=== PATIENT | male | born 1975 | race African-American/Black ===

== ENCOUNTER 2019-10-23 14:35 | Inpatient (IN) | payer MEDICAID, OTHER ==
[~2019-10-23] VITALS: Ht 167.6 cm; Wt 64.4 kg
[2019-10-23] MEDS ORDERED: LORazepam 2MG/ML-1ML VIAL IV ONE (14:45)
[2019-10-23 15:02] LABS: Basophils # (auto) 0.1 10 ^3/uL (0-0.2); Eosinophils # (auto) 0.1 10 ^3/uL (0-0.8); Hemoglobin 13.9 g/dL (13.5-17.5); Lymphocytes # (auto) 1.6 10 ^3/uL (0.4-5.4); Mean Corpuscular Hgb Conc. 30.9 g/dL (32.0-36.0)
[2019-10-23 15:21] LABS: Albumin 3.7 g/dL (3.4-5.0); Anion Gap 7 (5-15); Blood Urea Nitrogen 8 mg/dL (7-18); Calcium 9.4 mg/dL (8.5-10.1); Carbon Dioxide 28 mmol/L (21-32); Chloride 99 mmol/L (98-107); Glucose 94 mg/dL (74-106); Magnesium 1.8 mg/dL (1.6-2.6); Potassium 3.3 mmol/L (3.5-5.1); Sodium 134 mmol/L (136-145)
[2019-10-23 15:26] LABS: Basophils % (auto) 0.7 % (0.0-2.0); Eosinophils % (auto) 1.3 % (0.0-7.0); Monocytes # (auto) 0.6 10 ^3/uL (0-1.3); Monocytes % (auto) 5.6 % (0.0-12.0); Neutrophils # (auto) 7.6 10 ^3/uL (1.6-8.6); Neutrophils % (auto) 76.4 % (37.0-80.0); Red Blood Cells 6.22 10^6/uL (4.5-5.90); White Blood Cell 9.9 10^3/uL (4.4-10.8)
[2019-10-23 15:27] LABS: Alanine Aminotransferase 17 U/L (16-61); Alkaline Phosphatase 106 U/L (45-117); Aspartate Aminotransferase 10 U/L (15-37); BUN/Creatinine Ratio 5.9; Bilirubin, Total 0.4 mg/dL (0.2-1.0); GFR African American 74 mL/min; GFR Non-African American 61 mL/min; Hematocrit 44.8 % (41.0-53.0); Mean Corpuscular Hemoglobin 22.3 pg (28.0-32.0); Mean Corpuscular Volume 72.1 fL (80.0-100.0); Platelet Count (auto) 301 10^3/uL (140-450); Red Cell Distribution Width 14.5 % (11.8-14.3); Total Protein 7.7 g/dL (6.4-8.2)
[2019-10-23 17:35] LABS: Urine Bacteria NONE SEEN /hpf (None Seen); Urine Blood Negative /uL (Negative); Urine Mucus FEW (None Seen); Urine Specific Gravity 1.009 (1.001-1.035); Urine WBC <1 /hpf (0 - 3)
[2019-10-23 17:38] LABS: Alcohol, Urine < 3.0 mg/dL (0-10); Amphetamine Screen, Urine NEGATIVE (NEGATIVE); Barbiturate Scree,Urine NEGATIVE (NEGATIVE); Benzodiazephine Screen, Urine NEGATIVE (NEGATIVE); Cannabinoid Screen, Urine POSITIVE (NEGATIVE); Cocaine Screen, Urine NEGATIVE (NEGATIVE); Opiate Scree,Urine NEGATIVE (NEGATIVE); Phencyclidine Screen, Urine NEGATIVE (NEGATIVE)
[2019-10-23] MEDS ORDERED: ONDANSETRON HCL 4 MG/2 ML VIAL IV PRN (21:45)
[2019-10-23] MEDS ORDERED: ACETAMINOPHEN 325 MG TAB PO PRN (21:45)
[2019-10-23] MEDS ORDERED: NITROGLYCERIN 0.4 MG SL TAB SL PRN (21:45)
[2019-10-23] MEDS ORDERED: ZOLPIDEM TARTRATE 5 MG TAB PO PRN (21:45)
[2019-10-23] MEDS: SODIUM CHLORIDE 0.9% 1,000 ML IV SCH (21:45)
[2019-10-23] MEDS ORDERED: METOPROLOL TARTRATE 1MG/1ML-5ML VIAL IV PRN (21:45)
[2019-10-23] MEDS ORDERED: CARVEDILOL 3.125 MG TAB PO SCH (22:00)
[2019-10-23] MEDS: CARVEDILOL 3.125 MG TAB PO SCH (22:21)
[2019-10-23] MEDS: ATORVASTATIN 20 MG TAB PO SCH (22:21)
[2019-10-23 23:00] VITALS: BP 133/92
--- NOTE | 2019-10-23 23:15 | NUR ---
MS admit from ER BASILLIDYA admitted to tele/MS after SBAR received. Patient oriented to GUIDO STACY RN, room 238. Patient weighed by bedscale and encouraged to call if they need something. Pt is on room air with even and unlabored respirations. Bed locked, in lowest position, call light within reach, side rails up x2. All questions and concerns addressed, patient verbalized understanding. Will continue to monitor Q1hr and PRN.
[2019-10-24] VITALS (7 sets, daily range): BP systolic 114–164; BP diastolic 64–103
[2019-10-24] MEDS: MORPHINE SULF INJ 2 MG/ML SYRINGE 1ML IV PRN (06:50)
--- NOTE | 2019-10-24 06:50 | NUR ---
Pt reporting chest pain Chest pain 10/11. EKG performed. Showed NSR. Morphine given as protocol. Vitals: BP 147/100, P 64, O2 100%, RR 20. Will endorse to day shift RN for further monitoring.
--- NOTE | 2019-10-24 07:30 | NUR ---
Opening Shift Note Assumed care of patient, awake and alert. No S/S of distress/SOB or pain. Instructed on POC and to call for assist PRN, will continue to monitor for changes Q1hr and PRN.
--- NOTE | 2019-10-24 07:42 | NUR ---
RN TO REORDER COVID [facility] IN-HOUSE PER [facility] IS CURRENTLY UNABLE TO RUN IN-HOUSE TESTING. RN IS TO PERFORM SONIC TEST
[2019-10-24] MEDS: CLOPIDOGREL BISULFATE 75 MG TAB PO SCH (08:49)
[2019-10-24] MEDS: CARVEDILOL 3.125 MG TAB PO SCH ×2 (08:49→22:25)
[2019-10-24] MEDS: DOCUSATE SOD 100 MG CAP PO SCH (08:50)
[2019-10-24] MEDS: ASPirin 81 mg TAB PO SCH (08:50)
[2019-10-24] MEDS: SODIUM CHLORIDE 0.9% 1,000 ML IV SCH (08:50)
[2019-10-24] MEDS: LISINOPRIL 10 MG TAB PO SCH (08:50)
[2019-10-24] MEDS: LORazepam 0.5 MG TAB PO PRN (09:15)
--- NOTE | 2019-10-24 12:01 | NUR ---
SONIC TEST OBTAINED AND WALKED TO LAB BY DIRECTOR [employer] RHONDA
--- NOTE | 2019-10-24 14:15 | NUR ---
Est energy needs 5271-7989 kcal (25-30 kcal/kg BW 61.8kg) Est protein needs 49-62g (0.8-1g/kg BW 61.8kg) Will reassess prn. Addendum: 10/24/19 at [address] Amended: Links added.
[2019-10-24 15:58] LABS: BUN/Creatinine Ratio 8.2; Calcium 8.4 mg/dL (8.5-10.1); Potassium 3.7 mmol/L (3.5-5.1)
[2019-10-24] MEDS: ATORVASTATIN 20 MG TAB PO SCH (22:24)
[2019-10-25] MEDS: SODIUM CHLORIDE 0.9% 1,000 ML IV SCH ×2 (00:13→13:33)
[2019-10-25 05:13] VITALS: BP 136/74
[2019-10-25] MEDS: CLOPIDOGREL BISULFATE 75 MG TAB PO SCH (08:39)
[2019-10-25] MEDS: LISINOPRIL 10 MG TAB PO SCH (08:39)
[2019-10-25] MEDS: DOCUSATE SOD 100 MG CAP PO SCH (08:39)
[2019-10-25] MEDS: ASPirin 81 mg TAB PO SCH (08:39)
[2019-10-25] MEDS: CARVEDILOL 3.125 MG TAB PO SCH ×2 (08:40→21:33)
[2019-10-25 09:00] VITALS: BP 140/86
--- NOTE | 2019-10-25 09:40 | NUR ---
IV insertion IV access obtained, via clean sterile technique by inserting 20 gauge catheter at LEFT UPPER ARM after 1 attempt(s). IV secured properly. No trauma to site. Patient tolerated well.
--- NOTE | 2019-10-25 09:40 | NUR ---
IV removal IV DC'd with clean sterile technique, catheter fully intact. Pressure dressing applied to site. Patient tolerated well. NOTE:
[2019-10-25] MEDS: MORPHINE SULF INJ 2 MG/ML SYRINGE 1ML IV PRN (09:49)
[2019-10-25] MEDS ORDERED: ASPirin 81 mg TAB PO SCH (10:00)
[2019-10-25] MEDS ORDERED: PANTOPRAZOLE 40 MG TAB PO ONE (10:15)
[2019-10-25 13:00] VITALS: BP 113/80
[2019-10-25 17:00] VITALS: BP 128/80
--- NOTE | 2019-10-25 20:00 | NUR ---
Opening Shift Note Assumed care of patient, awake and alert x4. Patient denies pain or shortness of breath at this time. No sign/symptoms of distress noted or verbalized at this time. Instructed on plan of care and encouraged patient to call for assistance as needed, patient verbalized understanding. Bed is locked in lowest position, side rails x 2 are up, and call light is within reach.
[2019-10-25] MEDS: ATORVASTATIN 20 MG TAB PO SCH (21:34)
[2019-10-25] MEDS: LORazepam 0.5 MG TAB PO PRN (21:45)
[2019-10-25 22:00] VITALS: BP 117/81
[2019-10-26] MEDS: SODIUM CHLORIDE 0.9% 1,000 ML IV SCH ×2 (02:53→16:13)
[2019-10-26 05:00] VITALS: BP 117/74
--- NOTE | 2019-10-26 07:01 | NUR ---
Respiratory note: POX SPO2 98% ON RA. PT IS COMFORTABLY SLEEPING.
--- NOTE | 2019-10-26 07:08 | NUR ---
OPENING SHIFT NOTE ASSUMED CARE OF PATIENT FROM OXYGEN THERAPY TECHNICIAN RN RIKY. PATIENT IS AWAKE, ALERT, AND ORIENTED X4. PATIENT HAS NO S/S OF DISTRESS/SOB OR PAIN. INSTRUCTED PATIENT ON POC, PATIENT VERBALIZED UNDERSTANDING. BED IS IN LOWEST POSITION WITH SIDE RAILS RAISED X2, BED WHEELS LOCKED, AND CALL LIGHT IS WITHIN REACH. WILL CONTINUE TO MONITOR.
[2019-10-26 08:00] VITALS: BP 104/57
[2019-10-26] MEDS: LORazepam 0.5 MG TAB PO PRN ×2 (08:37→13:08)
[2019-10-26 09:00] VITALS: BP 104/57
--- NOTE | 2019-10-26 09:41 | NUR ---
REPORT GIVEN TO HALINA ALARCON. PATIENT TRANSFERRED TO 222A VIA WHEELCHAIR. PATIENT HAS NO S/S OF DISTRESS/SOB OR PAIN AT THIS TIME.
[2019-10-26] MEDS: ASPirin 81 mg TAB PO SCH (10:22)
[2019-10-26] MEDS: DOCUSATE SOD 100 MG CAP PO SCH (10:23)
[2019-10-26] MEDS: CARVEDILOL 3.125 MG TAB PO SCH ×2 (10:25→22:00)
[2019-10-26] MEDS: PANTOPRAZOLE 40 MG TAB PO SCH (10:26)
[2019-10-26] MEDS: CLOPIDOGREL BISULFATE 75 MG TAB PO SCH (10:26)
[2019-10-26] MEDS: LISINOPRIL 10 MG TAB PO SCH (10:27)
[2019-10-26 11:48] LABS: Mean Corpuscular Volume 71.7 fL (80.0-100.0); Monocytes # (auto) 0.5 10 ^3/uL (0-1.3); Platelet Count (auto) 272 10^3/uL (140-450)
[2019-10-26 11:50] LABS: Basophils # (auto) 0.1 10 ^3/uL (0-0.2); Basophils % (auto) 0.9 % (0.0-2.0); Eosinophils # (auto) 0.2 10 ^3/uL (0-0.8); Eosinophils % (auto) 3.5 % (0.0-7.0); Hematocrit 41.7 % (41.0-53.0); Lymphocytes # (auto) 1.6 10 ^3/uL (0.4-5.4); Mean Corpuscular Hemoglobin 22.5 pg (28.0-32.0); Mean Corpuscular Hgb Conc. 31.3 g/dL (32.0-36.0); Neutrophils # (auto) 4.6 10 ^3/uL (1.6-8.6); Neutrophils % (auto) 65.6 % (37.0-80.0); Red Blood Cells 5.81 10^6/uL (4.5-5.90); Red Cell Distribution Width 14.4 % (11.8-14.3)
[2019-10-26 12:09] LABS: Albumin 3.3 g/dL (3.4-5.0); Calcium 8.8 mg/dL (8.5-10.1)
[2019-10-26 12:13] LABS: BUN/Creatinine Ratio 12.5; Bilirubin, Total 0.3 mg/dL (0.2-1.0); Total Protein 7.1 g/dL (6.4-8.2)
[2019-10-26 12:57] VITALS: BP 112/66
--- NOTE | 2019-10-26 13:54 | NUR ---
MD ROUNDS MD ROUNDS WITH DR. WALLS. NO NEW ORDERS AT THIS TIME. WILL CONTINUE TO MONITOR.
--- NOTE | 2019-10-26 15:03 | NUR ---
PATIENT TAKEN DOWN FOR STRESS TEST
--- NOTE | 2019-10-26 15:30 | NUR ---
PATIENT RETURNED FROM STRESS TEST. NO SIGNS OF DISTRESS AT THIS TIME. RESPIRATIONS EVEN AND UNLABORED.
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
[2019-10-26 16:57] VITALS: BP 140/89
--- NOTE | 2019-10-26 17:27 | NUR ---
IV insertion IV access obtained, via clean sterile technique by inserting 20 gauge catheter at RA after 1 attempt. IV secured properly. No trauma to site. Patient tolerated well.
--- NOTE | 2019-10-26 19:24 | NUR ---
CLOSING NOTE ENDORSED CARE TO DAY SHIFT RN
--- NOTE | 2019-10-26 19:34 | NUR ---
Opening Shift Note Received report and assumed care of patient. Patient is awake and alert. No signs or symptoms of distress noted. Instructed patient on plan of care and to call for assistance as needed. Will continue to monitor.
[2019-10-26] MEDS: ATORVASTATIN 20 MG TAB PO SCH (21:58)
[2019-10-26 22:00] VITALS: BP 136/75
--- NOTE | 2019-10-26 22:00 | NUR ---
Medication Held Patient's blood pressure 132/71, Heart rate 59. Held Coreg 6.25mg to prevent further decrease in heart rate. Will continue to monitor and will endorse to day shift nurse.
[2019-10-27] MEDS: LORazepam 0.5 MG TAB PO PRN (00:39)
[2019-10-27 05:00] VITALS: BP 128/81
[2019-10-27] MEDS: SODIUM CHLORIDE 0.9% 1,000 ML IV SCH (06:32)
--- NOTE | 2019-10-27 08:00 | NUR ---
Morning note Patient resting in bed with even and unlabored respirations, no distress noted. Instructed patient on POC, fall precautions and to call for assistance as needed. Patient verbalized understanding. Fall precautions in place with call light within reach.
[2019-10-27] MEDS ORDERED: ADENOSINE 52 MG in GIVE UN-DILUTED 0 ML IV STA (08:07)
--- NOTE | 2019-10-27 08:30 | NUR ---
Patient off unit to stress test via wheelchair Respirations even and unlabored, no distress noted.
[2019-10-27 08:43] VITALS: BP 127/89
[2019-10-27 09:00] VITALS: BP 117/73
[2019-10-27] MEDS: PANTOPRAZOLE 40 MG TAB PO SCH (09:33)
[2019-10-27] MEDS: ASPirin 81 mg TAB PO SCH (09:33)
[2019-10-27] MEDS: LISINOPRIL 10 MG TAB PO SCH (09:33)
[2019-10-27] MEDS: CARVEDILOL 3.125 MG TAB PO SCH ×3 (09:34→22:50)
[2019-10-27] MEDS: DOCUSATE SOD 100 MG CAP PO SCH (09:34)
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
[2019-10-27 13:00] VITALS: BP 94/65
--- NOTE | 2019-10-27 14:17 | NUR ---
Nutrition Followup Notes Pt wt is 62.3 kg Pt was sleeping with no relatives at bedside when rounded this morning. Pt is with a Cardiac 2gNa diet, appetite is fair aeb ave 63% PO intake over 4 meals per RN doc. LABS: Alb 3.3 L GI: Pt had 1 BM on 10/23 per RN doc. BS: 21 low risk. Refer to wound assessment report for full details. PES: Unintentional wt loss r/t pt reported poor appetite to nurse aeb pt reported to nurse 2-13 lb wt loss Comments 1) Continue to monitor po intake, labs, skin 2) Refer pt to [employer] on DC 3) Continue current plan of care
[2019-10-27 16:50] VITALS: BP 135/83
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
--- NOTE | 2019-10-27 18:26 | NUR ---
Closing note Patient resting in bed with even and unlabored respirations, no distress noted. Fall precautions in place with call light within reach.
--- NOTE | 2019-10-27 19:15 | NUR ---
Care endorsed to HALINA Benavides.
--- NOTE | 2019-10-27 19:20 | NUR ---
Opening Shift Note Assumed care of patient, awake and alert. No S/S of distress/SOB. Patient complains of 6/10 chest pain, will medicate per orders. POC discussed and questions answered, bed is locked in lowest position with side rails up x2 for safety. Call light is within reach and patient encouraged to call for assistance PRN, will continue to monitor for changes Q1hr and PRN.
[2019-10-27] MEDS: MORPHINE SULF INJ 2 MG/ML SYRINGE 1ML IV PRN (20:43)
[2019-10-27] MEDS: ATORVASTATIN 20 MG TAB PO SCH (21:40)
--- NOTE | 2019-10-27 22:20 | NUR ---
IV removal IV DC'd with clean sterile technique, catheter fully intact. Pressure dressing applied to site. Patient tolerated well.
[2019-10-27 22:22] VITALS: BP 119/78
--- NOTE | 2019-10-27 22:25 | NUR ---
LIDYA GRACIA states they want to leave the floor Against Medical Advice (AMA) to go outside and smoke. Patient encouraged to stay on floor and not smoke. Patient advised of the risks and benefits of leaving AMA. Patient verbalized understanding and signed required AMA form.
--- NOTE | 2019-10-27 22:30 | NUR ---
PATIENT OFF UNIT TO SMOKE. AMA FORM SIGNED.
--- NOTE | 2019-10-27 22:54 | NUR ---
PATIENT BACK ON UNIT.
--- NOTE | 2019-10-28 04:55 | NUR ---
GOWN AND ALL LINENS CHANGED AND CHG BATH GIVEN.
[2019-10-28 05:14] VITALS: BP 116/72
[2019-10-28 07:15] LABS: INR 1.12 (0.9-1.15); Partial Thromboplastin Time 27.1 sec (23.0-31.2)
[2019-10-28] MEDS ORDERED: IOHEXOL 350 MG/ML 100ML IJ ONE (07:46)
[2019-10-28] MEDS ORDERED: LIDOCAINE 2%HCL (LOCAL ANESTH.) INJ 20ML MDV ONE (08:01)
--- NOTE | 2019-10-28 08:18 | NUR ---
cathlab pt presented to cathlab with nursing questions re procedure. progress notes x2 from injection moulding machine operator noted in EHR. questions answered and addressed to pt's satisfaction. pt verbalized understanding.
[2019-10-28] MEDS ORDERED: fentaNYL CITRATE 100 MCG/2 ML VL ONE (08:29)
[2019-10-28] MEDS ORDERED: ANGIOMAX 250 MG VIAL IV ONE (08:29)
[2019-10-28] MEDS ORDERED: MIDAZOLAM HCL 1MG/1ML-2 ML VIAL ONE (08:29)
[2019-10-28] MEDS ORDERED: SODIUM CHL 0.9% 0 ML ONE (08:30)
[2019-10-28 08:48] VITALS: BP 122/83
[2019-10-28] MEDS: ASPirin 81 mg TAB PO SCH (10:59)
[2019-10-28] MEDS: LISINOPRIL 10 MG TAB PO SCH (10:59)
[2019-10-28] MEDS: PANTOPRAZOLE 40 MG TAB PO SCH (10:59)
[2019-10-28] MEDS: DOCUSATE SOD 100 MG CAP PO SCH (10:59)
--- NOTE | 2019-10-28 12:27 | NUR ---
Dietary consult Patient states he is unable to eat/has no appetite unless he smokes pot. Requested a dietary consult. The only option in the drop down that was close was that he refused to eat. No place to type a comment.
[2019-10-28 12:37] VITALS: BP 126/80
--- NOTE | 2019-10-28 15:44 | NUR ---
Missing cell phone returned
[2019-10-28] MEDS ORDERED: LISI-648 PO (15:58)
[2019-10-28] MEDS ORDERED: CAR3125T PO (15:58)
[2019-10-28] MEDS ORDERED: PANT40TA2 PO (15:59)
[2019-10-28 17:00] VITALS: BP 132/85
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
== END 2019-10-28 17:58 | disposition home or self-care (01) | DRG 192 ==
LOC: ER 14:35 → TELE-EAST 14:36 → TELE-CENTR 10-26 09:45
PROVIDERS: ADMIT Hospitalist; ATTEND Internal Medicine Nephrology
PROC: 4A023N7 Measurement of Cardiac Sampling and Pressure, Left Heart, Percutaneous Approach (ICD-10-PCS; principal; 2019-10-28)
PROC: B2111ZZ Fluoroscopy of Multiple Coronary Arteries using Low Osmolar Contrast (ICD-10-PCS; 2019-10-28)
PROC: B2151ZZ Fluoroscopy of Left Heart using Low Osmolar Contrast (ICD-10-PCS; 2019-10-28)
DX: R07.89 Other chest pain (principal); N17.0 Acute kidney failure with tubular necrosis; I50.23 Acute on chronic systolic (congestive) heart failure; I11.0 Hypertensive heart disease with heart failure; K21.9 Gastro-esophageal reflux disease without esophagitis; F41.9 Anxiety disorder, unspecified; E87.6 Hypokalemia; F12.10 Cannabis abuse, uncomplicated; F32.9 Major depressive disorder, single episode, unspecified; Z20.828 Contact with and (suspected) exposure to other viral communicable diseases; Z89.021 Acquired absence of right finger(s)
CPT/HCPCS: 36415; 36600; 71045; 78452; 80048; 80053; 80307; 81001; 82805; 83735; 84484; 85025; 85379; 85610; 85730; 86850; 86900; 86901; 87426; 93017; 93306; 93458; 94760; 99152; G0378; J0153; J2250